=== PATIENT | male | born 1945 | race Caucasian/White ===

== ENCOUNTER → 2016-10-12 | Outpatient (CLI) | payer MEDICARE ==
[2016-10-12 07:51] LABS: Cholesterol 279 mg/dL (<200); HDL Cholesterol 59 mg/dL (40-60); Triglycerides 204 mg/dL (<150)
== END | disposition home or self-care (01) ==
LOC: LABWHC1 06:40
PROVIDERS: ATTEND Internal Medicine Critical Care Medicine
DX: E78.5 Hyperlipidemia, unspecified (principal)
CPT/HCPCS: 36415; 80061

== ENCOUNTER 2018-01-14 18:38 | Emergency (ER) | payer MEDICARE ==
[2018-01-14 18:43] VITALS: BP 169/85; PULSE 70; RESP 16; TEMP 98
--- NOTE | 2018-01-14 19:36 | ED ---
General Adult HPI - General Chief complaint: Urogenital Stated complaint: Cannot Urinate Time Seen by Provider: 01/14/18 19:21 Source: patient, family, RN notes reviewed Mode of arrival: ambulatory Limitations: no limitations - History of Present Illness Initial comments: Patient is a pleasant 72-year-old male presenting to the emergency Department with urinary retention. Patient did have hemorrhoidectomy this morning. Patient was able to urinate twice small amounts following this. Patient has been unable to urinate since 11 AM. Patient does have suprapubic fullness. No fever. No other concerns. Patient does have a history of previous TURP procedure many years ago. Patient did not have catheter placed earlier this morning. - Related Data Home Medications Medication Instructions Recorded Confirmed Esomeprazole Magnesium [NexIUM] 40 mg PO DAILY 12/17/13 01/14/18 Hydrocodone/Acetaminophen 1 tab PO TID PRN 12/17/13 01/14/18 [Hydrocodone/Acetaminophen 10-325] Cyclobenzaprine [Flexeril] 10 mg PO HS 12/29/14 01/14/18 DULoxetine HCL [Cymbalta] 60 mg PO HS 12/29/14 01/14/18 Multivitamins, Thera [Theragran] 1 tab PO DAILY 04/18/15 01/14/18 Rosuvastatin Calcium [Crestor] 20 mg PO DAILY 04/18/15 01/14/18 Cetirizine HCl [Zyrtec] 10 mg PO DAILY 01/14/18 01/14/18 Previous Rx's Medication Instructions Recorded Tamsulosin [Flomax] 0.4 mg PO DAILY #14 cap 01/14/18 Allergies Allergy/AdvReac Type Severity Reaction Status Date / Time budesonide [From Pulmicort] Allergy Unknown Verified 01/14/18 19:35 Review of Systems ROS Statement: Those systems with pertinent positive or pertinent negative responses have been documented in the HPI. ROS Other: All systems not noted in ROS Statement are negative. Constitutional: Denies: fever Eyes: Denies: eye pain ENT: Denies: ear pain Respiratory: Denies: cough Cardiovascular: Denies: chest pain Endocrine: Denies: fatigue Gastrointestinal: Denies: vomiting Genitourinary: Reports: urgency Musculoskeletal: Denies: back pain Skin: Denies: rash Past Medical History Past Medical History: Cancer, GERD/Reflux, Hyperlipidemia, Osteoarthritis (OA) Additional Past Medical History / Comment(s): 04/28/15 Pt admitted to floor s/ p lumbar laminectomy decompression fusion L1-3 with cell saver. Other hx: Post laminectomy syndrome spondylolisthesis, low back pain radiating down R leg intermittently, melanoma, degenerative disc disease, benign colon polyps. History of Any Multi-Drug Resistant Organisms: None Reported Past Surgical History: Back Surgery, Prostate Surgery Additional Past Surgical History / Comment(s): 04/28/15 Lumbar laminectomy decompression fusion L1-3 with cell saver. Othe SX: 03/17/15 discogram L2-4, Neurostimulator inserted. back fusion-later hardware removed, back injections, spinal surgeries in 2000, 2002 and 2009, melanoma skin cancer removed from face , colonoscopies with benign polypectomies. Past Anesthesia/Blood Transfusion Reactions: No Reported Reaction Past Psychological History: Depression Smoking Status: Former smoker Past Alcohol Use History: Occasional Past Drug Use History: None Reported - Past Family History Father Family Medical History: Cancer Additional Family Medical History / Comment(s): Father had colon cancer. He lived to be in his late 80's Sister(s) Family Medical History: Cancer Additional Family Medical History / Comment(s): Leukemia Mother Family Medical History: Dementia, Renal Disease Additional Family Medical History / Comment(s): Mother had alheimer's. She lived to be in her late 80's. General Exam Limitations: no limitations General appearance: alert, in no apparent distress Head exam: Present: atraumatic Respiratory exam: Present: normal lung sounds bilaterally Cardiovascular Exam: Present: regular rate, normal rhythm GI/Abdominal exam: Present: soft, distended (Mild suprapubic fullness). Absent : tenderness exam: Present: normal inspection. Absent: testicular tenderness, urethral discharge, scrotal swelling Extremities exam: Present: normal inspection Neurological exam: Present: alert Psychiatric exam: Present: normal affect, normal mood Skin exam: Present: normal color Course Vital Signs 01/14/18 18:39 Temperature 98.0 F Pulse Rate 70 Respiratory 16 Rate Blood Pressure 169/85 O2 Sat by Pulse 96 Oximetry Procedures - Catheter Insertion (Urinary) Indications: to alleviate urinary retention Preparation: Povidone-Iodine Type of Catheter Inserted: Mehta (18 coud) Catheter Balloon Size (mLs): 10 Topical Anesthesia Used: Yes (Urojet) Results: successfully catheterized-immediate flow Patient Tolerated Procedure: well, no complications Disposition Clinical Impression: Urinary retention Disposition: HOME SELF-CARE Condition: Stable Instructions: Urinary Retention in Men (ED) Additional Instructions: Please follow-up with your surgeon as previously directed. Please follow-up with urology within the next week for further evaluation and Mehta catheter management. Please follow-up with primary care physician. Return for no urine passing, fevers, abdominal pain or distention, worsening symptoms or other concerns. Prescriptions: Tamsulosin [Flomax] 0.4 mg PO DAILY #14 cap Is patient prescribed a controlled substance at d/c from ED?: No Referrals: Clint Bell DO [Primary Care Provider] - 1-2 days Davis Diaz MD [STAFF PHYSICIAN] - 1-2 days Time of Disposition: 20:29
[2018-01-14] MEDS ORDERED: LIDOCAINE URO-JET JELLY 2% 5 ML KIT URETHRAL ONE (19:54)
== END 2018-01-14 21:08 | disposition home or self-care (01) ==
LOC: EC 18:38
DX: R33.9 Retention of urine, unspecified (principal); K21.9 Gastro-esophageal reflux disease without esophagitis; E78.5 Hyperlipidemia, unspecified; F32.9 Major depressive disorder, single episode, unspecified; Z85.820 Personal history of malignant melanoma of skin; Z87.891 Personal history of nicotine dependence; Z79.899 Other long term (current) drug therapy; Z88.8 Allergy status to other drugs, medicaments and biological substances
CPT/HCPCS: 51702; 99283

== ENCOUNTER → 2018-03-07 | Outpatient (CLI) | payer MEDICARE ==
[2018-03-07 07:47] LABS: Blood Urea Nitrogen 24 mg/dL (9-20)
--- NOTE | 2018-03-07 14:52 | CT ---
EXAMINATION TYPE: CT thor lumbar spine w con DATE OF EXAM: 03/07/2018 COMPARISON: 01/07/2015 lumbar spine MRI HISTORY: lower back pain CT DLP: 1771.6 mGycm CONTRAST: CT scan of the lumbar is performed with IV Contrast, patient injected with 100mL mL of Isovue 300. TECHNIQUE: CT of the lumbar spine is performed on a spiral scan at 3 mm thick sections. Reconstructed images are performed in the coronal and sagittal planes. FINDINGS: Thoracic spine: Cervical thoracic junction facets have some hypertrophy. No stenosis is present. No spinal canal stenosis is present through the thoracic spine. Foraminal stenosis is not identified. Neural stimulator leads are evident posteriorly. Upper lumbar spine has pedicle screws present. This would include L1-L2 and L3 L4 L5 levels have lami nectomies. Note is made of some sacroiliac joint degenerative changes. No spinal canal stenosis is evident. Prior laminectomies been performed in the lower lumbar spine. Fa cet degenerative changes are noted. Vertebral body heights appear preserved. IMPRESSION: 1. Postsurgical changes lumbar spine. 2. No suspicious acute changes present. 3. Degenerative facet changes greater in the lumbar spine.
== END | disposition home or self-care (01) ==
LOC: RADCTMAIN 06:55
PROVIDERS: ATTEND Internal Medicine Critical Care Medicine
DX: M46.96 Unspecified inflammatory spondylopathy, lumbar region (principal); Z98.890 Other specified postprocedural states; Z88.8 Allergy status to other drugs, medicaments and biological substances
CPT/HCPCS: 72129; 72132; 82565; 84520

== ENCOUNTER → 2018-12-16 | Outpatient (CLI) | payer MEDICARE ==
--- NOTE | 2018-12-16 15:02 | CT ---
CT thoracic lumbar spine with contrast HISTORY: Back pain Helical acquisition through the thoracic and lumbar spine following 100 cc Isovue-300 IV. Automated exposure control for dose reduction. DLP 748.3 mGycm. Correlation to prior exam dated 03/07/2018. Thoracic and lumbar vertebral bodies show stable appearance, there is normal bone mineralization, hei ght, alignment. Posterior fusion changes are again noted at L1-L3, laminectomies are present at L4 an d L5. Screw tracks present at S1 are again seen as well as at L5 and L4. There are leads present with in the spinal canal as on previous exam extending to the T11 location, the right lead courses to the T10-11 towards the region of the exiting nerve root on the right as on prior, the left lead is more d orsal in location at T10 and T9 shows laminectomy changes. There is no significant spinal stenosis or sizable disc herniation. No abnormal enhancement. There is multilevel facet arthropathy present. Mul tilevel spondylosis is present. T9-10 and shows vacuum phenomenon at the intervertebral disc space. A rtifact due to hardware may obscure some detail. IMPRESSION: Stable exam. Postprocedural changes as described.
== END | disposition home or self-care (01) ==
LOC: RADCTMAIN 13:48
PROVIDERS: ATTEND Internal Medicine Critical Care Medicine
DX: M54.9 Dorsalgia, unspecified (principal); Z98.1 Arthrodesis status
CPT/HCPCS: 82565; 84520; 72129; 72132; 36415; Q9967

== ENCOUNTER → 2019-03-11 | Outpatient (CLI) | payer MEDICARE | END | disposition home or self-care (01) | LOC: CPPFTMAIN 11:21 | PROVIDERS: ATTEND Internal Medicine Critical Care Medicine | DX: Z01.818 Encounter for other preprocedural examination (principal) | CPT/HCPCS: 94060; 94726; 94729 ==

== ENCOUNTER → 2020-03-22 | Outpatient (CLI) | payer MEDICARE ==
--- NOTE | 2020-03-22 14:11 | CT ---
EXAMINATION TYPE: CT brain w con DATE OF EXAM: 03/22/2020 COMPARISON: HISTORY: Headache x couple weeks, nausea, lightheaded, sensitive scalp on left side. CT DLP: 1081.6 mGycm Automated exposure control for dose reduction was used. CONTRAST: CT scan of the head is performed with IV Contrast, patient injected with 100 mL of Isovue 300. FINDINGS: Mild generalized degenerative change. 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 No enhancing mass. No mi dline shift. No acute hemorrhage. Craniocervical junction maintained in the sella turcica has a normal appearance. IMPRESSION: Mild degenerative change
== END | disposition home or self-care (01) ==
LOC: RADCTMAIN 12:52
PROVIDERS: ATTEND Internal Medicine Critical Care Medicine
DX: G31.9 Degenerative disease of nervous system, unspecified (principal); R51 Headache
CPT/HCPCS: 82565; 84520; 70460; 36415; Q9967

== ENCOUNTER → 2020-04-05 | Outpatient (CLI) | payer MEDICARE ==
--- NOTE | 2020-04-05 08:28 | CT ---
EXAMINATION TYPE: CT sinus wo con DATE OF EXAM: 04/05/2020 COMPARISON: None HISTORY: chronic sinusitis CT DLP: 596.5 mGycm CONTRAST: 0 mL of Isovue 300 The paranasal sinuses are examined in the axial plane at 2 mm thick sections. Reconstructed images i n the coronal plane were obtained. There is dental amalgam scatter artifact Minimal mucosal thickening is within the posterior left maxillary sinus. The ethmoid air cells are c lear. The sphenoid sinuses are clear. The frontal sinuses are clear. The septum is evaluated. There is septal deviation to the left. Some superior anterior right septal deviation is present. There is been prior bilateral uncinectomies and partial ethmoidectomies. IMPRESSIONS: 1. Minimal mucosal thickening posterior left maxillary sinus. 2. Septal deviation. 3. Postsurgical changes
== END | disposition home or self-care (01) ==
LOC: RADCTMAIN 07:08
PROVIDERS: ATTEND Otolaryngology
DX: J34.89 Other specified disorders of nose and nasal sinuses (principal); J34.2 Deviated nasal septum; J32.9 Chronic sinusitis, unspecified; Z90.89 Acquired absence of other organs
CPT/HCPCS: 70486

== ENCOUNTER → 2020-04-08 | Outpatient (CLI) | payer MEDICARE ==
[2020-04-08 07:52] LABS: Anisocytosis Slight; Basophils % (A) 0 %; Eosinophils # (A) 0.1 k/uL (0-0.7); Eosinophils % (A) 3 %; HCT 44.3 % (39.0-53.0); HGB 14.9 gm/dL (13.0-17.5); Lymphocytes % (A) 44 %; MCH 30.3 pg (25.0-35.0); MCHC 33.5 g/dL (31.0-37.0); MCV 90.4 fL (80.0-100.0); Mean Platelet Volume 7.1; Monocytes # (A) 0.5 k/uL (0-1.0); Monocytes % (A) 10 %; Neutrophils # (A) 1.8 k/uL (1.3-7.7); Neutrophils % (A) 39 %; Platelet Count 190 k/uL (150-450); RBC 4.91 m/uL (4.30-5.90); WBC 4.6 k/uL (3.8-10.6)
[2020-04-08 11:12] LABS: T4, Free (Free Thyroxine) 0.9 ng/dL (0.80-1.80)
[2020-04-08 12:25] LABS: Erythrocyte Sedimentation Rate 8 mm/Hr (0-20)
[2020-04-08 14:00] LABS: African American GFR (CKD) 84.4 (60.0-200.0); Albumin 4.1 g/dL (3.80-4.90); Albumin/Globulin Ratio 2.16 (1.60-3.17); Anion Gap 5.8 mmol/L (4.00-12.00); Calcium 9.6 mg/dL (8.7-10.3); Carbon Dioxide 31.2 mmol/L (21.6-31.8); Chol/HDL Ratio 3.63; Globulin 1.9 g/dL (1.6-3.3); Non-African American GFR(CKD) 72.8 (60.0-200.0); PSA Annual Screen 1.4 ng/mL (0.0-4.0); Potassium 5.1 mmol/L (3.5-5.5)
[2020-04-08 17:06] LABS: Hemoglobin A1C 6.4 % (4.0-6.0)
== END | disposition home or self-care (01) ==
LOC: LABWHC1 06:55
PROVIDERS: ATTEND Internal Medicine Critical Care Medicine
DX: E78.5 Hyperlipidemia, unspecified (principal); N13.30 Unspecified hydronephrosis; R79.89 Other specified abnormal findings of blood chemistry
CPT/HCPCS: 84439; 80061; 80053; 85652; 82533; 84443; 85025; 86431; 82306; 86038; 86039; 83036; 36415; G0103

== ENCOUNTER → 2022-11-14 | Outpatient (CLI) | payer MEDICARE ==
--- NOTE | 2022-11-15 09:31 | CT ---
EXAMINATION TYPE: CT sinus wo con DATE OF EXAM: 11/14/2022 COMPARISON: 04/05/2007 HISTORY: Chronic Sinusitis CT DLP: 522 mGycm. Automated Exposure Control for Dose Reduction was Utilized. TECHNIQUE: CT scan of the sinuses is performed without contrast, axial images are obtained, coronal r eformatted images are also reviewed. FINDINGS: The paranasal sinuses including the frontal, ethmoid, sphenoid, and maxillary sinuses bila terally demonstrates mild mucosal thickening involving the maxillary sinuses. Frontal sinuses hypopla stic. Remaining paranasal sinuses normal development and aeration. No air-fluid levels. Previous surg ida involving the maxillary sinuses are noted with the ostium bilaterally. Nasal septal deviation.. The ostiomeatal complex is patent bilaterally on the coronal images. Visualized portion of mastoid air cells show no abnormal opacification. The globes are intact bilate rally. IMPRESSION: 1. Mild bilateral chronic appearing maxillary sinusitis. 2. Stable postoperative change.
== END | disposition home or self-care (01) ==
LOC: RADCTMAIN 14:57
PROVIDERS: ATTEND Internal Medicine
DX: J32.0 Chronic maxillary sinusitis (principal)
CPT/HCPCS: 70486

== ENCOUNTER → 2023-01-10 | Outpatient (CLI) | payer MEDICARE ==
--- NOTE | 2023-01-10 16:35 | US ---
EXAMINATION TYPE: US kidneys/renal and bladder DATE OF EXAM: 01/10/2023 COMPARISON: NONE CLINICAL INDICATION: Male, 77 years old with history of R31.0 GROSS HEMATURIA; hematuria EXAM MEASUREMENTS: Right Kidney: 10.2 x 5.5 x 4.6 cm Left Kidney: 11 x 5.4 x 4.8 cm Prominent prostate seen. Right Kidney: No hydronephrosis or masses seen Left Kidney: No hydronephrosis or masses seen Bladder: anechoic There is no evidence for hydronephrosis at this point in time. No nephrolithiasis is seen. No kathleen s are identified. The urinary bladder is anechoic. Bilateral ureteral jets are seen. IMPRESSION: Prostate glandular prominence. Otherwise unremarkable study.
== END | disposition home or self-care (01) ==
LOC: RADUSWWP 13:22
PROVIDERS: ATTEND Urology
DX: R31.0 Gross hematuria (principal)
CPT/HCPCS: 76770

== ENCOUNTER → 2023-01-17 | Outpatient (CLI) | payer MEDICARE ==
--- NOTE | 2023-01-17 10:50 | XR ---
EXAMINATION TYPE: XR chest 2V DATE OF EXAM: 01/17/2023 10:35 AM COMPARISON: Chest radiographs from 04/18/2015 TECHNIQUE: XR chest 2V Frontal and lateral views of the chest. CLINICAL INDICATION:Male, 77 years old with history of SOB; FINDINGS: Lungs/Pleura: There is no evidence of pleural effusion, focal consolidation, or pneumothorax. Pulmonary vascularity: Unremarkable. Heart/mediastinum: Cardiomediastinal silhouette is unremarkable. Musculoskeletal: No acute osseous pathology. Spinal stimulator leads identified terminating at the lo wer thoracic spine. IMPRESSION: No acute cardiopulmonary disease/process. No significant change from prior examination.
== END | disposition home or self-care (01) ==
LOC: RADXRMAIN 10:24
PROVIDERS: ATTEND Internal Medicine
DX: R06.02 Shortness of breath (principal)
CPT/HCPCS: 71046

== ENCOUNTER → 2023-02-25 | Outpatient (CLI) | payer MEDICARE | END | disposition home or self-care (01) | LOC: LABWHC1 08:38 | PROVIDERS: ATTEND Neurological Surgery | DX: M96.1 Postlaminectomy syndrome, not elsewhere classified (principal); I45.10 Unspecified right bundle-branch block; R00.1 Bradycardia, unspecified; R94.31 Abnormal electrocardiogram [ECG] [EKG]; Z98.1 Arthrodesis status; Z96.82 Presence of neurostimulator | CPT/HCPCS: 36415; 93005 ==

== ENCOUNTER → 2023-02-26 | Outpatient (CLI) | payer MEDICARE ==
--- NOTE | 2023-02-26 08:23 | CT ---
EXAMINATION TYPE: CT thoracic spine wo con CT DLP: 2254.7 mGycm, Automated exposure control for dose reduction was used. DATE OF EXAM: 02/26/2023 6:58 AM COMPARISON: CT of the thoracolumbar spine 12/16/2018. CLINICAL INDICATION:Male, 77 years old with history of M96.1 POSTLAMINECTOMY SYNDROME; PHH, Pain in t horacic spine, hx of laminectomy. TECHNIQUE: Axial images of the thoracic spine were obtained without contrast. Coronal and sagittal re formats were performed. FINDINGS: No acute fracture. Thoracic vertebral bodies show stable appearance. Maintained height and alignment. Posterior fusion changes are again noted at L1-L3. There are again leads present within t he spinal canal extending to the T10 location. The right lead courses to the mid T10 vertebral body p osition towards the exiting nerve root on the right. The left lead is more dorsal location again at T 10-T11. No significant change in position of the leads. No significant spinal canal stenosis or sizab le disc herniation. Multilevel facet arthropathy and anterior osteophytosis present. Hardware causes streak artifact which limits evaluation. Hardware appears intact. Stable hypodense 1.6 cm nodule within the left thyroid lobe. Elevation of the right hemidiaphragm. Le ft apical pleural scarring. The visualized lungs are clear. IMPRESSION: 1. No acute fracture. 2. Postsurgical changes at L1-L3 redemonstrated. Hardware appears intact. 3. No significant central canal or neural foraminal stenosis identified. 4. Stable position of neuro stimulator leads in the thoracolumbar spine.
== END | disposition home or self-care (01) ==
LOC: RADCTMAIN 06:32
PROVIDERS: ATTEND Neurological Surgery
DX: M96.1 Postlaminectomy syndrome, not elsewhere classified (principal); Z98.1 Arthrodesis status
CPT/HCPCS: 72128

== ENCOUNTER → 2024-04-28 | Outpatient (CLI) | payer MEDICARE ==
--- NOTE | 2024-04-30 19:18 | CT ---
EXAMINATION TYPE: CT lumbar spine wo con DATE OF EXAM: 04/28/2024 COMPARISON: 12/16/2018 HISTORY: Chronic lower back pain CT DLP: 1463.0 mGycm Automated exposure control for dose reduction was used. Contrast: None Technique: Axial images millimeters thick sections. Reconstructed images and sagittal planes. FINDINGS: Fixation screws and rods extend from L1 through L3. Laminectomy is evident L5 and L4. Disc space narrowing is present L2-3. Moderate narrowing of the bilateral foramen at L3-4 is present. Findings appear stable from the comparison of 2019 IMPRESSION: 1. POSTSURGICAL CHANGES APPEAR STABLE FROM PRIOR EXAMINATIONS. 2. MODERATE BILATERAL FORAMINAL NARROWING L3-4 [facility], Workstation: [facility], 04/30/2024 7:16 PM
== END | disposition home or self-care (01) ==
LOC: RADCTMAIN 15:34
PROVIDERS: ATTEND Physical Medicine & Rehabilitation
DX: M48.061 Spinal stenosis, lumbar region without neurogenic claudication (principal); G89.29 Other chronic pain; Z98.890 Other specified postprocedural states
CPT/HCPCS: 72131